=== PATIENT | male | born 2000 | race Caucasian/White ===

== ENCOUNTER 2023-06-17 09:44 | Emergency (ER) | payer BC, SELFPAY ==
[2023-06-17 09:51] VITALS: BP 153/83
[2023-06-17 10:16] VITALS: BMI 26.4
--- NOTE | 2023-06-17 10:16 | ED.GENMED ---
History of Present Illness
General
Chief Complaint: Headache
Source: patient
Time Seen by Provider: 06/17/23 10:04
Travel History
Have you had any contact with someone who has COVID-19?: No
Do you have any symptoms of coronavirus? Fever > 100 degrees, chills, cough, shortness of breath, sore throat, loss of taste or smell, muscle aches, or headache?: No
History of Present Illness
History of Present Illness:
23-year-old male with past medical history of migraine disorder and GERD presenting to the emergency department for evaluation of a headache that has been persistent since 1 AM that woke him up from sleep. Patient states he tried his usual remedies
of abha-bsa-bdulfxt measures and 1000 mg of Excedrin Migraine around 3 AM but does not have any relief. Headache is described to be posterior and radiating towards the top of his head, throbbing, associated with light sensitivity, nausea, 1 episode
of vomitus. He states the headache is a little bit different than his typical migraine headaches as his migraine headaches are usually frontal and are usually resolved with bhnt-xpx-sdphxqn measures. Patient does not believe he has had any recent
CT imaging of the head but states he believes he has had them in the past. He denies any fevers, chills, rigors, neck pain or stiffness, focal weakness or numbness, traumatic injuries or any other concerns
Past History
Past History
ED Past Medical History: GERD and Other (Migraines)
ED Past Surgical History: None
Social History
Tobacco: Other (Nicotine)
Alcohol: Occasional
Drug: None
Personal: Single
Living: with family
Employment: Employed
Review of Systems
Review of Systems
All Other Systems: ROS reviewed and negative except as documented in HPI and ROS
Phy Exam
Physical Exam
Physical Exam:
GENERAL: Alert , in no apparent distress
EYE: pupils equal and reactive, 3 mm bilateral, EOMI
NECK: Supple, no significant adenopathy., No midline tenderness, full range of motion, no meningismus
ENT: o/p clr, mmm.
CARDIAC: Regular rate and rhythm .
LUNGS: Clear breath sounds bilaterally, no acute respiratory distress, no wheezes/rales/rhonchi
NEUROLOGICAL: Alert and oriented, no focal neuro deficits, moves all extremities
SKIN: Warm and dry, skin intact.
MUSCULOSKELETAL: well perfused.
PSYCH: Normal and appropriate interaction.
Scores
Heart Failure Risk
Heart Failure Risk Score: Not Applicable
Heart Score for Chest Pain Patients
STEMI patient?: Not applicable
Withdrawal Assessment of Alcohol
Withdrawal Assessment Completed?: Not applicable
Course
Orders/Labs/Results
Orders:
Orders
06/17/23 10:11
IV Insert/Care/Rem.- Treatment PRN
0.9% Sodium Chloride 1000 ml [Nss] 1,000 ml IV BOLUS
Dexamethasone Sod Phosphate [Decadron] 10 mg IV NOW STA
Diphenhydramine [Benadryl] 25 mg IV NOW STA
Metoclopramide [Reglan] 10 mg IV NOW STA
Vital Signs
Initial and Last Documented VS:
Initial Vital Signs
Temp Pulse Resp BP Pulse Ox
98.4 F 65 16 153/83 98
06/17/23 09:51 06/17/23 09:51 06/17/23 09:51 06/17/23 09:51 06/17/23 09:51
Last Documented Vital Signs
Temp Pulse Resp BP Pulse Ox
98.4 F 65 16 153/83 98
06/17/23 09:51 06/17/23 09:51 06/17/23 09:51 06/17/23 09:51 06/17/23 09:51
MDM/Problems Addressed
Differential Diagnosis Includes:
Migraine headache, tension headache, less concern for intracranial bleeding, no concern for infectious etiology
MDM/Problems Addressed:
23-year-old male presenting emergency department for evaluation of a migraine headache that began around 1 AM this morning, unrelieved with multiple mhmg-xpq-izialbd measures. Patient is in no acute distress in the emergency department. Considered
CT scan of the head however patient states at this time he really only wants medications to help his headache go away. Will treat with Reglan, Benadryl, Decadron and fluids. Reassessment following. If patient reports minimal change in symptoms
will then CT imaging to rule out any intracranial pathology.
Chronic conditions affecting care: Neurological disorder (Migraines)
Acute Exacerbation and/or Progression of Chronic Illness: Neurological disorder (Migraines)
*Pulse Oximetry
Patient hypoxic: no
*Critical Care Note
Total Time (30-74mins, 75-104mins- exclusive of procedures): Not Applicable
Data Reviewed
Review of Other/Old Records Reveals: Radiology Studies (Patient did have a brain MRI in February 2011 due to headaches and this was read as normal)
Patient Management
Escalation/DeEscalation of care consider admission/obs:
On reevaluation patient reports feeling full resolution of his headache and feels comfortable being discharged home. Advised outpatient follow-up with primary care provider as needed. Aware of return precautions emergency department but otherwise
stable for discharge home.
ED Attending Note
-
Portions of this chart may have been created with voice recognition software.� Occasional wrong word or��sound alike� substitutions may have occurred due to the inherent limitations of voice recognition software.
Discharge Plan
Departure
Patient Disposition: Home (Routine Discharge)
Date of Disposition: 06/17/23
Time of Disposition: 12:12
Patient with high blood pressure during this ER visit?: Yes
Discharge Problem:
Headache
Instructions: Headache, Adult (DC)
Prescriptions:
No Action
cephalexin 500 MG capsule
500 mg PO QID Qty: 28 0RF
Referrals:
NONE,* [Family Provider] -
Interventions
Interventions:
*Risk Screen - Suicide Last Done: 06/17/23 09:52
*Neglect/Abuse Screening Last Done: 06/17/23 09:52
*ED COVID-19 Vaccine History Last Done: 06/17/23 09:52
ED- Neurological Assessment Last Done: 06/17/23 10:39
Discharge Date and Time
Print Language: [id number]
[2023-06-17] MEDS: DECADRON 10 MG IV (10:22)
[2023-06-17] MEDS: REGLAN 10 MG IV (10:22)
[2023-06-17] MEDS: NSS 1000 IV (10:22)
[2023-06-17] MEDS: BENADRYL 25 MG IV (10:23)
== END 2023-06-17 12:36 | disposition home or self-care (01) ==
LOC: EMR 09:44
PROVIDERS: EMERGENCY PHYSICIAN Emergency Medicine
DX: G43.909 Migraine, unspecified, not intractable, without status migrainosus (principal); R03.0 Elevated blood-pressure reading, without diagnosis of hypertension; K21.9 Gastro-esophageal reflux disease without esophagitis
CPT/HCPCS: 99284; 96374; 96375 ×2; 96361